=== PATIENT | male | born 1980 | race Caucasian/White ===

== ENCOUNTER 2017-11-30 00:28 | Emergency (ER) | payer BC, OTHER ==
[~2017-11-30] VITALS: Ht 167.6 cm; Wt 90.0 kg
[~2017-11-30 00:28] MED LIST: 1-ME1LIQ PO; ATOR10 PO; PRED10 PO; VIIB40TA PO
[2017-11-30 00:39] VITALS: BP 159/104; PULSE 116; RESP 16; TEMP 98.5; O2SAT 96
[2017-11-30 01:29] LABS: AUTOMATED NEUTROPHIL # 5.3 TH/MM3 (1.8-7.7); BASOPHIL % 0.5 % (0.0-2.0); EOSINOPHIL % 0.5 % (0.0-4.0); HEMATOCRIT 45.9 % (39.0-51.0); HEMOGLOBIN 16.2 GM/DL (13.0-17.0); LYMPH % 32.4 % (9.0-44.0); MEAN CELL VOLUME 88.7 FL (80.0-100.0); MEAN CORPUSCULAR HEMOGLOBIN 31.4 PG (27.0-34.0); MEAN CORPUSCULAR HGB CONC 35.4 % (32.0-36.0); MEAN PLATELET VOLUME 7.5 FL (7.0-11.0); MONO % 8.2 % (0.0-8.0); MONOCYTE # 0.7 TH/MM3 (0-0.9); NEUT % 58.4 % (16.0-70.0); PLATELET COUNT 307 TH/MM3 (150-450); RED BLOOD COUNT 5.17 MIL/MM3 (4.50-5.90); RED CELL DISTRIBUTION WIDTH 13.3 % (11.6-17.2); WHITE BLOOD COUNT 9.1 TH/MM3 (4.0-11.0)
[2017-11-30 02:05] LABS: ALBUMIN 4.5 GM/DL (3.4-5.0); ALT (GPT) 63 U/L (12-78); AST (GOT) 49 U/L (15-37); BICARBONATE 27.5 MEQ/L (21.0-32.0); BLOOD UREA NITROGEN 11 MG/DL (7-18); CALCIUM 8.3 MG/DL (8.5-10.1); CHLORIDE 103 MEQ/L (98-107); GLOMERULAR FILTRATION RATE 75 ML/MIN (>89); GLUCOSE,RANDOM 94 MG/DL (74-106); SODIUM (NA) 142 MEQ/L (136-145)
[2017-11-30 02:07] LABS: ALKALINE PHOSPHATASE 108 U/L (45-117); TOTAL BILIRUBIN ADULT 0.3 MG/DL (0.2-1.0)
--- NOTE | 2017-11-30 04:32 | PD ---
HPI Chief Complaint: Psychiatric Symptoms Time Seen by Provider: 04:18 Travel History International Travel<30 days: No Contact w/Intl Traveler<30days: No Traveled to known affect area: No History of Present Illness HPI 37-year-old male presents under Back act initiated by the [employer]. According to his paperwork the patient was at his residence and his mother overheard him saying that he was going to end his life of his left him. The patient reports that he has a history of depression, on Effexor, sees a therapist regularly. He reports that he has been drinking more alcohol recently and his does not like it. His went over to her sister's house this evening and the patient's mother came over to his house. He was telling the over the phone that he was going to be leaving and his mother overheard this and misunderstood this as a suicidal gesture. What he meant was that he was going to be going over to his parents house. He denies any thoughts of hurting himself or anyone else. He has no history of suicide attempt in the past. He reports that he is motivated to quit drinking. He reports that he sees a therapist on a regular basis, has an appointment early next week, and plans on following up with her. He has no medical complaints at this time. [facility] Past Medical History Asthma: Yes Depression: Yes High Cholesterol: Yes Diminished Hearing: No GERD: Yes Hypertension: Yes Influenza Vaccination: No Social History Alcohol Use: Yes (SOCIALLY. Has been decreasing due to weight increase. ) Tobacco Use: No Substance Use: No Allergies-Medications (Allergen,Severity, Reaction): Coded Allergies: No Known Allergies (Unverified Adverse Reaction, Unknown, 11/30/17) Reported Meds & Prescriptions Reported Meds & Active Scripts Active Reported Deltasone 10 Mg Tab (Prednisone) 10 Mg Tab 40 Mg PO DAILY Viibryd (Vilazodone) 40 Mg Tab 40 Mg PO DAILY Amlodipine Besylate 10 mg (Amlodipine Besylate) 10 Mg Tab 1 Tab PO DAILY Lipitor (Atorvastatin Calcium) 10 Mg Tab 0 PO DAILY UNKNOWN DOSE Review of Systems Except as stated in HPI: all other systems reviewed are Neg Physical Exam Narrative GENERAL: Pleasant well-developed well-nourished male in no acute distress SKIN: Warm and dry. HEAD: Atraumatic. Normocephalic. EYES: Pupils equal and round. No scleral icterus. No injection or drainage. ENT: No nasal bleeding or discharge. Mucous membranes pink and moist. NECK: Trachea midline. No JVD. CARDIOVASCULAR: Regular rate and rhythm. No murmur appreciated. RESPIRATORY: No accessory muscle use. Clear to auscultation. Breath sounds equal bilaterally. GASTROINTESTINAL: Abdomen soft, non-tender, nondistended. Hepatic and splenic margins not palpable. MUSCULOSKELETAL: No obvious deformities. No clubbing. No cyanosis. No edema. NEUROLOGICAL: Awake and alert. No obvious cranial nerve deficits. Motor grossly within normal limits. Normal speech. PSYCHIATRIC: Appropriate mood and affect; insight and judgment normal. Data Data Last Documented VS Vital Signs Date Time Temp Pulse Resp B/P (MAP) Pulse Ox O2 Delivery O2 Flow Rate FiO2 11/30/17 00:39 98.5 116 16 159/104 (122) 96 Orders Orders Complete Blood Count With Diff (11/30/17 00:46) Comprehensive Metabolic Panel (11/30/17 00:46) Psych Screen (11/30/17 00:46) Drug Screen, Random Urine (11/30/17 00:46) Alcohol (Ethanol) (11/30/17 01:12) Diet Regular Basic (11/30/17 Breakfast) Ed Discharge Order (11/30/17 04:28) Labs Laboratory Tests Test 11/30/17 01:12 White Blood Count 9.1 TH/MM3 Red Blood Count 5.17 MIL/MM3 Hemoglobin 16.2 GM/DL Hematocrit 45.9 % Mean Corpuscular Volume 88.7 FL Mean Corpuscular Hemoglobin 31.4 PG Mean Corpuscular Hemoglobin Concent 35.4 % Red Cell Distribution Width 13.3 % Platelet Count 307 TH/MM3 Mean Platelet Volume 7.5 FL Neutrophils (%) (Auto) 58.4 % Lymphocytes (%) (Auto) 32.4 % Monocytes (%) (Auto) 8.2 % Eosinophils (%) (Auto) 0.5 % Basophils (%) (Auto) 0.5 % Neutrophils # (Auto) 5.3 TH/MM3 Lymphocytes # (Auto) 3.0 TH/MM3 Monocytes # (Auto) 0.7 TH/MM3 Eosinophils # (Auto) 0.0 TH/MM3 Basophils # (Auto) 0.0 TH/MM3 CBC Comment DIFF FINAL Differential Comment Blood Urea Nitrogen 11 MG/DL Creatinine 1.10 MG/DL Random Glucose 94 MG/DL Total Protein 9.0 GM/DL Albumin 4.5 GM/DL Calcium Level 8.3 MG/DL Alkaline Phosphatase 108 U/L Aspartate Amino Transf (AST/SGOT) 49 U/L Alanine Aminotransferase (ALT/SGPT) 63 U/L Total Bilirubin 0.3 MG/DL Sodium Level 142 MEQ/L Potassium Level 3.7 MEQ/L Chloride Level 103 MEQ/L Carbon Dioxide Level 27.5 MEQ/L Anion Gap 12 MEQ/L Estimat Glomerular Filtration Rate 75 ML/MIN Urine Opiates Screen NEG Urine Barbiturates Screen NEG Urine Amphetamines Screen NEG Urine Benzodiazepines Screen NEG Urine Cocaine Screen NEG Urine Cannabinoids Screen NEG Ethyl Alcohol Level 282 MG/DL MDM Medical Decision Making Medical Screen Exam Complete: Yes Emergency Medical Condition: Yes Medical Record Reviewed: Yes Differential Diagnosis Adjustment reaction, acute psychosis, major depressive disorder, depressive disorder not otherwise specified Narrative Course The patient has been monitored here for several hours. He is currently calm, cooperative, answering questions appropriately. He is exhibiting no evidence of psychosis or intoxication. He is katie for safety. He has no evidence of imminent threat to himself or anyone else. He has a follow-up planned with a therapist, he is motivated to decrease his alcohol use in the future. He has 3 children at home and is self-employed. The Back act will be lifted, seen by Dr. Chun who lifted the Back act. He understands that he can return at any time if his symptoms change. Diagnosis Primary Impression: Alcohol abuse Additional Instructions: Follow-up with your therapist and primary care physician as scheduled. Return for any acutely new or worsening symptoms. Med/Other Pt SpecificInfo: No Change to Meds Disposition: 01 DISCHARGE HOME Condition: Stable Livan Faye Nov 30, 2017 04:32
--- NOTE | 2017-12-01 15:16 | PD ---
Physical Exam Date Seen by Provider: Nov 30, 2017 Time Seen by Provider: 05:00 Narrative pt rteports to this MD he has no intention of self harm , he was arguing over his recent increase in etoh consumption with his , and at one point he reports he said " I won't be here when you get back " by which he reports he meant he was going to go over his mothers to sleep and stay . Then 911 EMS called [facility] for SI that pt denies and says he never made suicidal remarks , I discuss the his young children and his therapy and his plan for managing his etoh usage. Pt contracts for safety and I ask him directly " You are not going to harm yourself" He state 'No" that he has no intention of self harm denies plan . Pt has appontment saturday with his therapist. Has social and professional support inplace. safe for discharge from [facility] . I lift Back Act Data Data Last Documented VS Vital Signs Date Time Temp Pulse Resp B/P (MAP) Pulse Ox O2 Delivery O2 Flow Rate FiO2 11/30/17 00:39 98.5 116 16 159/104 (122) 96 Orders Orders Complete Blood Count With Diff (11/30/17 00:46) Comprehensive Metabolic Panel (11/30/17 00:46) Psych Screen (11/30/17 00:46) Drug Screen, Random Urine (11/30/17 00:46) Alcohol (Ethanol) (11/30/17 01:12) Ed Discharge Order (11/30/17 04:28) Labs Laboratory Tests Test 11/30/17 01:12 White Blood Count 9.1 TH/MM3 Red Blood Count 5.17 MIL/MM3 Hemoglobin 16.2 GM/DL Hematocrit 45.9 % Mean Corpuscular Volume 88.7 FL Mean Corpuscular Hemoglobin 31.4 PG Mean Corpuscular Hemoglobin Concent 35.4 % Red Cell Distribution Width 13.3 % Platelet Count 307 TH/MM3 Mean Platelet Volume 7.5 FL Neutrophils (%) (Auto) 58.4 % Lymphocytes (%) (Auto) 32.4 % Monocytes (%) (Auto) 8.2 % Eosinophils (%) (Auto) 0.5 % Basophils (%) (Auto) 0.5 % Neutrophils # (Auto) 5.3 TH/MM3 Lymphocytes # (Auto) 3.0 TH/MM3 Monocytes # (Auto) 0.7 TH/MM3 Eosinophils # (Auto) 0.0 TH/MM3 Basophils # (Auto) 0.0 TH/MM3 CBC Comment DIFF FINAL Differential Comment Blood Urea Nitrogen 11 MG/DL Creatinine 1.10 MG/DL Random Glucose 94 MG/DL Total Protein 9.0 GM/DL Albumin 4.5 GM/DL Calcium Level 8.3 MG/DL Alkaline Phosphatase 108 U/L Aspartate Amino Transf (AST/SGOT) 49 U/L Alanine Aminotransferase (ALT/SGPT) 63 U/L Total Bilirubin 0.3 MG/DL Sodium Level 142 MEQ/L Potassium Level 3.7 MEQ/L Chloride Level 103 MEQ/L Carbon Dioxide Level 27.5 MEQ/L Anion Gap 12 MEQ/L Estimat Glomerular Filtration Rate 75 ML/MIN Urine Opiates Screen NEG Urine Barbiturates Screen NEG Urine Amphetamines Screen NEG Urine Benzodiazepines Screen NEG Urine Cocaine Screen NEG Urine Cannabinoids Screen NEG Ethyl Alcohol Level 282 MG/DL MDM Supervised Visit with EMELYN: Yes Narrative Course I agree with PA plan to lift Bakers act... i sign paper to remove Back act Diagnosis Primary Impression: Alcohol abuse Patient Instructions: General Instructions Departure Forms: Tests/Procedures Additional Instruction: Follow-up with your therapist and primary care physician as scheduled. Return for any acutely new or worsening symptoms. Disposition: 01 DISCHARGE HOME Condition: Stable Filippo Chun MD Dec 01, 2017 15:15
== END 2017-11-30 05:08 | disposition home or self-care (01) ==
LOC: NEPJ 00:28
DX: F10.10 Alcohol abuse, uncomplicated (principal); Y90.8 Blood alcohol level of 240 mg/100 ml or more; F32.9 Major depressive disorder, single episode, unspecified; I10 Essential (primary) hypertension; E78.00 Pure hypercholesterolemia, unspecified; J45.909 Unspecified asthma, uncomplicated; K21.9 Gastro-esophageal reflux disease without esophagitis
CPT/HCPCS: 80053; 80307; 85025; 99284